=== PATIENT | female | born 1990 | race Caucasian/White ===

== ENCOUNTER 2016-08-24 16:55 | Inpatient (IN) | payer MEDICAID ==
[2016-08-24] MEDS ORDERED: BRETHINE SUB-Q PRN (18:55)
[2016-08-24] MEDS ORDERED: BRETHINE IVP PRN (18:55)
[2016-08-24] MEDS ORDERED: SUBLIMAZE IV PRN (18:55)
[2016-08-24] MEDS ORDERED: ePHEDrine SULFATE IV PRN (18:55)
[2016-08-24] MEDS ORDERED: MINERAL OIL PO PRN (18:55)
[2016-08-24] MEDS ORDERED: PITOCin/NS 20 UNIT/1000ML DRIP 20 UNITS/1,000 ML BAG IV SCH (19:00)
--- NOTE | 2016-08-24 19:01 | History and Physical Report ---
History of Present Illness Date of examination: 08/24/16 Chief complaint: decreased movement since yesterday History of present illness: 25 Y/O now 39.1 weeks with c/o decreased movement since yesterday. Late care at [facility] since 25 weeks. GBS positive. U/S today with JANENE @ 5.7. Past History Past Medical History: no pertinent history Past Surgical History: no surgical history Family/Genetic History: none Social history: no significant social history - Obstetrical History Expected Date of Delivery: 08/30/16 Actual Gestation: 39 Week(s) 1 Day(s) : 4 Para: 3 Hx # Term Pregnancies: 0 Number of Pregnancies: 0 Spontaneous Abortions: 0 Induced : 0 Number of Living Children: 3 (one baby with TOF) Medications and Allergies Allergies Allergy/AdvReac Type Severity Reaction Status Date / Time No Known Allergies Allergy Verified 08/24/16 17:04 Home Medications Medication Instructions Recorded Confirmed Last Taken Type Ferrous Gluconate [Iron 236 MG tab] 1 tab PO BID 08/24/16 08/24/16 08/23/16 History 2000 Vitamin Tablet 1 tab PO DAILY 08/24/16 08/24/16 08/23/16 20:00 History Review of Systems All systems: negative - Physical Exam Breasts: Positive: deferred Cardiovascular: Regular rate Lungs: Positive: Clear to auscultation Abdomen: Positive: normal appearance Genitourinary (Female): Positive: normal external genitalia Vulva: both: normal Vagina: Positive: normal moisture Uterus: Positive: enlarged Adnexa: both: normal Anus/Rectum: Positive: normal perianal skin Extremities: Positive: normal Deep Tendon Reflex Grade: Normal +2 - Obstetrical FHR: category 1 Cervical Dilatation: 1 Cervical Effacement Percentage: 70 station: -1 Uterine Contraction Pattern: Irregular Uterine Contraction Intensity: Mild Results All other labs normal. Assessment and Plan A: IUP @ 39.1 weeks Oligiohydramnious P: Cervadil ripening
[2016-08-24] MEDS ORDERED: LACTATED RINGERS 1,000 ML IV SCH (19:02)
[2016-08-24] MEDS ORDERED: CERVIDIL VG ONE (19:30)
[2016-08-24 19:47] LABS: Hematocrit 32.8 % (30.3-42.9); Hemoglobin 11.6 gm/dl (10.1-14.3); Mean Corpuscular HGB Conc 35 % (30-34); Mean Corpuscular Hemoglobin 33 pg (28-32); Mean Corpuscular Volume 94 fl (79-97); Platelet Count 177 K/mm3 (140-440); Red Blood Count 3.47 M/mm3 (3.65-5.03); Red Cell Distribution Width 13.4 % (13.2-15.2)
[2016-08-24] MEDS ORDERED: POLYCILLIN/NS 2 GM/100 ML 2 GM/100 ML BAG IV ONE (20:00)
[2016-08-24] MEDS ORDERED: XYLOCAINE 2% INFILTRATI ONE (20:00)
[2016-08-24] MEDS ORDERED: POLYCILLIN/NS 1 GM/50 ML 1 GM/50 ML BAG IV SCH (22:56)
[2016-08-25] MEDS ORDERED: POLYCILLIN/NS 2 GM/100 ML 2 GM/100 ML BAG IV ONE (05:38)
[2016-08-25] MEDS ORDERED: METHERGINE IM ONE (07:10)
--- NOTE | 2016-08-25 07:23 | Procedure Note ---
OB Delivery Note - Delivery Date of Delivery: 08/25/16 Surgeon: RENÉE ROMERO Estimated blood loss: 300cc - Vaginal Delivery presentation: vertex Delivery position: OA Delivery induction: cervidil Delivery monitor: external FHT, external uterine Route of delivery: Delivery placenta: spontaneous Delivery cord: 3 umbilical vessels Episiotomy: none Delivery laceration: 1st degree - Infant A at 1 minute: 8 at 5 minutes: 9 Gender: Female (Del @ 7:09, weight is 6 lbs. 11 oz. or 3020 g)
[2016-08-25] MEDS ORDERED: BENADRYL PO PRN (07:24)
[2016-08-25] MEDS ORDERED: ZOFRAN IV PRN (07:24)
[2016-08-25] MEDS ORDERED: DERMOPLAST TP PRN (07:24)
[2016-08-25] MEDS ORDERED: LANSINOH TP PRN (07:24)
[2016-08-25] MEDS ORDERED: PHENERGAN PO PRN (07:24)
[2016-08-25] MEDS ORDERED: PHENERGAN PR PRN (07:24)
[2016-08-25] MEDS ORDERED: MILK OF MAGNESIA PO PRN (07:24)
[2016-08-25] MEDS ORDERED: METHERGINE IM PRN (07:24)
[2016-08-25] MEDS ORDERED: TUCKS PAD TP PRN (07:24)
[2016-08-25] MEDS ORDERED: TYLENOL PO PRN (07:24)
[2016-08-25] MEDS ORDERED: DULCOLAX PR PRN (07:24)
[2016-08-25] MEDS ORDERED: PITOCin/NS 20 UNIT/1000ML DRIP 20 UNITS/1,000 ML BAG IV SCH (08:00)
[2016-08-25] MEDS ORDERED: SODIUM CHLORIDE FLUSH SYRINGE 10 ML IV NR (08:00)
[2016-08-25] MEDS: NORCO 5/325 PO PRN ×2 (09:33→17:37)
[2016-08-25] MEDS: FEOSOL PO SCH ×2 (11:11→21:00)
[2016-08-25] MEDS: PRENATAL VITAMIN PO SCH (11:11)
[2016-08-25] MEDS: MOTRIN PO SCH ×3 (11:12→21:00)
[2016-08-25] MEDS: COLACE PO SCH ×2 (15:40→21:00)
[2016-08-25 20:41] LABS: Hematocrit 29.6 % (30.3-42.9); Hemoglobin 10.4 gm/dl (10.1-14.3)
[2016-08-25] MEDS: SENOKOT S PO SCH (21:00)
[2016-08-26] MEDS: MOTRIN PO SCH ×3 (05:11→18:10)
[2016-08-26] MEDS: NORCO 5/325 PO PRN ×2 (05:12→22:14)
--- NOTE | 2016-08-26 10:06 | Ultrasound Report ---
ULTRASOUND OB LIMITED History: well being Technique: Transabdominal ultrasound with Doppler interrogation. Gestation: Single Position: Cephalic Amniotic Fluid: Decreased JANENE = 5.7 cm Placenta: Posterior Placental Grade: 2 Heart Rate: 146 BPM
[2016-08-26] MEDS: COLACE PO SCH ×2 (10:07→22:11)
[2016-08-26] MEDS: PRENATAL VITAMIN PO SCH (10:07)
[2016-08-26] MEDS: FEOSOL PO SCH ×2 (10:07→22:11)
--- NOTE | 2016-08-26 10:07 | Ultrasound Report ---
ULTRASOUND BIOPHYSICAL PROFILE: History: well being Technique: Transabdominal ultrasound with Doppler interrogation. 2 - breathing movements 2 - movements 2 - posture and tone 2 - Qualitative amniotic fluid volume 8 - TOTAL SCORE OF POSSIBLE 8 Heart Rate (bpm) 146
--- NOTE | 2016-08-26 12:36 | Progress Note ---
Assessment and Plan A: PPD #1 -stable P: Discharge home in am Discharge instructions given Subjective - Subjective Date of service: 08/26/16 Principal diagnosis: Interval history: 25 Y/O now 39.1 weeks with c/o decreased movement since yesterday. Late care at [facility] since 25 weeks. GBS positive. U/S today with JANENE @ 5.7. Patient reports: appetite normal [place]: doing well Objective - Vital Signs Latest vital signs: Vital Signs Temp Pulse Resp BP 08/26/16 00:00 98.3 F 72 18 115/73 08/25/16 16:45 97.7 F 62 18 110/55 Intake and Output 08/25/16 08/26/16 08/26/16 22:59 06:59 14:59 Other: # Voids Indwelling Catheter 1 - Exam Breasts: Present: deferred Cardiovascular: Present: Regular rate Abdomen: Present: soft Vulva: both: normal Uterus: Present: fundal height below umbilicus Extremities: Present: normal Deep Tendon Reflex Grade: Normal +2 - Labs Labs: Abnormal lab results 08/25/16 Range/Units 20:09 Hct 29.6 L (30.3-42.9) %
--- NOTE | 2016-08-26 12:38 | Discharge Summary ---
Providers - Providers Date of Admission: 08/24/16 21:28 Date of discharge: 08/27/16 Attending physician: INGRIS SPRING MD Primary care physician: INGRIS SPRING MD Hospitalization Reason for admission: induction of labor Delivery: Episiotomy: none Laceration: none Other procedures: none complications: none Discharge diagnosis: IUP at term delivered baby: female Condition at discharge: Good Disposition: DISCHARGED TO HOME OR SELFCARE Plan - Discharge Medications Prescriptions: HYDROcodone/APAP 5-325 [[place] 5/325] 1 each PO Q6HR PRN #30 tablet PRN Reason: Pain Ibuprofen [Motrin 600 MG tab] 600 mg PO Q8H PRN #30 tablet PRN Reason: Pain Multivitamin with Iron [Multivitamins with Iron] 1 each PO DAILY #30 tablet - Provider Discharge Summary Additional instructions: [] Smoking cessation referral if applicable(refer to patient education folder for contact #) [] Refer to [facility]'s [facility] Booklet Call your doctor immediately for: * Fever > 100.5 * Heavy vaginal bleeding ( >1 pad per hour) * Severe persistent headache * Shortness of breath * Reddened, hot, painful area to leg or breast * Drainage or odor from incision. * Keep incision clean and dry at all times and follow doctor's instructions regarding bathing/showering - Follow up plan Follow up: [facility] [Provider Group] - 6 Weeks
[2016-08-26] MEDS: SENOKOT S PO SCH (22:00)
[2016-08-27] MEDS: MOTRIN PO SCH ×2 (00:47→06:03)
[2016-08-27 08:30] VITALS: BP 95/58
== END 2016-08-27 15:25 | disposition home or self-care (01) | DRG 775 ==
LOC: TRG 16:55 → LD 21:28 → OB 08-25 10:19
PROVIDERS: ADMIT Obstetrics & Gynecology; ATTEND Obstetrics & Gynecology
PROC: 10E0XZZ Delivery of Products of Conception, External Approach (ICD-10-PCS; principal; 2016-08-25)
PROC: 0HQ9XZZ Repair Perineum Skin, External Approach (ICD-10-PCS; 2016-08-25)
DX: O41.03X0 Oligohydramnios, third trimester, not applicable or unspecified (principal); O99.824 Streptococcus B carrier state complicating childbirth; O70.0 First degree perineal laceration during delivery; Z3A.39 39 weeks gestation of pregnancy; Z37.0 Single live birth
CPT/HCPCS: 36415; 59200; 76815; 76819; 85014; 85018; 85027; 86850; 86900; 86901; 99211; G0463; J0290; J2210; J2590; J3010; J7120

== ENCOUNTER 2017-10-31 17:52 | Outpatient (CLI) | payer MEDICAID ==
[2017-10-31 18:40] VITALS: BP 106/61
== END 2017-10-31 18:36 | disposition home or self-care (01) ==
LOC: TRG 17:52
PROVIDERS: ATTEND Obstetrics & Gynecology
DX: O47.03 False labor before 37 completed weeks of gestation, third trimester (principal); Z3A.37 37 weeks gestation of pregnancy
CPT/HCPCS: 59025

== ENCOUNTER 2017-11-04 11:21 | Inpatient (IN) | payer MEDICAID ==
[2017-11-04] MEDS ORDERED: STADOL IV PRN (11:47)
[2017-11-04] MEDS ORDERED: BRETHINE SUB-Q PRN (11:47)
[2017-11-04] MEDS ORDERED: ZOFRAN IV PRN ×2 (11:47→15:28)
[2017-11-04] MEDS ORDERED: SUBLIMAZE IV PRN (11:47)
[2017-11-04] MEDS ORDERED: MINERAL OIL PO PRN (11:47)
[2017-11-04] MEDS ORDERED: ePHEDrine SULFATE IV PRN (11:47)
[2017-11-04] MEDS ORDERED: NARCAN 0.4 MG/1 ML IV PRN (11:47)
[2017-11-04] MEDS ORDERED: POLYCILLIN/NS 2 GM/100 ML 2 GM/100 ML BAG IV ONE (11:47)
[2017-11-04] MEDS ORDERED: XYLOCAINE 2% INFILTRATI ONE (11:47)
[2017-11-04] MEDS ORDERED: BRETHINE IVP PRN (11:47)
[2017-11-04] MEDS ORDERED: LACTATED RINGERS 1,000 ML IV SCH (12:00)
[2017-11-04] MEDS ORDERED: PITOCin/NS 30 UNIT/500ML 30 UNITS/500 ML BAG IV SCH (12:00)
[2017-11-04] MEDS ORDERED: PITOCin/NS 20 UNIT/1000ML DRIP 20 UNITS/1,000 ML BAG IV SCH ×2 (12:00→15:28)
--- NOTE | 2017-11-04 12:46 | History and Physical Report ---
History of Present Illness Date of examination: 11/04/17 Date of admission: 11/04/17 11:48 Chief complaint: contractions History of present illness: Pt is a 26 year old female MARITO 11/15/17 at 38w3d who presents with regular contractions since 10 am and advanced cervical dilation of 6 cm. She denies leakage of fluid or vaginal bleeding. She has had care at [facility] since transfer into care at 29 wks complicated by anemia on iron supplementation, E Coli UTI, and GBS positive status. Past History Past Medical History: no pertinent history Social history: no significant social history - Obstetrical History Expected Date of Delivery: 11/15/17 Actual Gestation: 38 Week(s) 3 Day(s) : 5 Para: 4 Hx # Term Pregnancies: 4 Number of Pregnancies: 0 Spontaneous Abortions: 0 Induced : 0 Number of Living Children: 4 Medications and Allergies Allergies Allergy/AdvReac Type Severity Reaction Status Date / Time No Known Allergies Allergy Verified 08/24/16 17:04 Home Medications Medication Instructions Recorded Confirmed Last Taken Type Ferrous Gluconate [Iron 236 MG tab] 1 tab PO BID 08/24/16 10/31/17 08/23/16 History 2000 Vitamin Tablet 1 tab PO DAILY 08/24/16 10/31/17 08/23/16 20:00 History Active Meds: Active Medications Butorphanol Tartrate (Stadol) 2 mg IV Q2H PRN PRN Reason: Pain , Severe (7-10) Ephedrine Sulfate (Ephedrine Sulfate) 10 mg IV Q2M PRN PRN Reason: Hypotension Fentanyl (Sublimaze) 100 mcg IV Q2H PRN PRN Reason: Labor Pain Ampicillin Sodium (Polycillin/Ns 2 Gm/100 Ml) 2 gm in 100 mls @ 100 mls/hr IV ONCE ONE; Protocol Stop: 11/04/17 12:46 Ampicillin Sodium (Ampicillin/Ns 1 Gm/50 Ml) 1 gm in 50 mls @ 100 mls/hr IV Q4HR ANI; Protocol Lactated Ringer's (Lactated Ringers) 1,000 mls @ 125 mls/hr IV DIRECT ANI Oxytocin/Sodium Chloride (Pitocin/Ns 20 Unit/1000ml Drip) 20 units in 1,000 mls @ 125 mls/hr IV DIRECT ANI Oxytocin/Sodium Chloride (Pitocin/Ns 30 Unit/500ml) 30 units in 500 mls @ 2 mls /hr IV TITR ANI; Protocol Mineral Oil (Mineral Oil) 30 ml PO QHS PRN PRN Reason: Constipation Naloxone HCl (Narcan 0.4 Mg/1 Ml) 0.1 mg IV Q2MIN PRN PRN Reason: Res Rate </= 8 or 02 SAT < 92% Ondansetron HCl (Zofran) 4 mg IV Q8H PRN PRN Reason: Nausea And Vomiting Terbutaline Sulfate (Brethine) 0.25 mg SUB-Q ONCE PRN PRN Reason: Hyperstimulation/Hypertonicity Terbutaline Sulfate (Brethine) 0.25 mg IVP ONCE PRN PRN Reason: Hyperstimulation/Hypertonicity Review of Systems All systems: negative - Vital Signs Vital signs: Vital Signs Pulse BP 65 124/73 11/04/17 11:44 11/04/17 11:44 Temp Pulse Resp BP Pulse Ox 65 124/73 11/04/17 11:44 11/04/17 11:44 - Physical Exam Breasts: Positive: deferred Cardiovascular: Regular rate Lungs: Positive: Clear to auscultation Abdomen: Positive: soft (gravid ) Uterus: Positive: enlarged (gravid ) Extremities: Positive: normal - Obstetrical FHR: auscultation normal Uterine Contraction Monitor Mode: External Cervical Dilatation: 7 Cervical Effacement Percentage: 90 station: +1 Uterine Contraction Pattern: Regular Uterine Tone Measurement Phase: Resting Uterine Contraction Intensity: Strong/Firm Results All other labs normal. Assessment and Plan A: IUP at 38w3d Active labor GBS positive status P: Admit to labor and delivery GBS prophylaxis Routine intrapartum care.
--- NOTE | 2017-11-04 12:51 | Procedure Note ---
OB Delivery Note - Delivery Date of Delivery: 11/04/17 Surgeon: GERALDINE TAM Estimated blood loss: 300cc - Vaginal Delivery presentation: vertex Delivery position: OA Intrapartum events: precipitous labor- <3hr Delivery monitor: external FHT, external uterine Route of delivery: Delivery placenta: spontaneous Delivery cord: 3 umbilical vessels, other (body cord ) Episiotomy: none Delivery laceration: none Anesthesia: none Delivery comments: Pt experienced rupture of membranes and progressed rapidly to complete dilation and pushed to deliver a viable male over intact perineum via under no anesthesia. Head delivered in LIVE position, followed quickly by shoulders and body. Body cord delivered through. placed on maternal abdomen and bulb suctioned. Cord clamped and cut and handed to nurse in attendance. Cord blood collected. Placenta delivered spontaneously (intact, 3VC). Vagina and perineum explored. No lacerations noted. EBL 300 ml. - Infant A at 1 minute: 9 at 5 minutes: 9 Infant Gender: Male (2994g (6lb 10oz) @ 1206 pm)
[2017-11-04 14:50] LABS: Hematocrit 31.2 % (30.3-42.9); Hemoglobin 10.7 gm/dl (10.1-14.3); Mean Corpuscular HGB Conc 34 % (30-34); Mean Corpuscular Hemoglobin 32 pg (28-32); Mean Corpuscular Volume 93 fl (79-97); Platelet Count 193 K/mm3 (140-440); Red Blood Count 3.36 M/mm3 (3.65-5.03); Red Cell Distribution Width 16.2 % (13.2-15.2)
[2017-11-04] MEDS ORDERED: SODIUM CHLORIDE FLUSH SYRINGE 10 ML IV SCH (15:28)
[2017-11-04] MEDS ORDERED: TUCKS PAD TP PRN (15:28)
[2017-11-04] MEDS ORDERED: PERCOCET 5/325 PO PRN (15:28)
[2017-11-04] MEDS ORDERED: LANSINOH TP PRN ×2 (15:28)
[2017-11-04] MEDS ORDERED: BENADRYL PO PRN (15:28)
[2017-11-04] MEDS ORDERED: PHENERGAN PR PRN (15:28)
[2017-11-04] MEDS ORDERED: PHENERGAN PO PRN (15:28)
[2017-11-04] MEDS ORDERED: DULCOLAX PR PRN (15:28)
[2017-11-04] MEDS ORDERED: TYLENOL PO PRN (15:28)
[2017-11-04] MEDS ORDERED: MILK OF MAGNESIA PO PRN (15:28)
[2017-11-04] MEDS ORDERED: DERMOPLAST TP PRN (15:28)
[2017-11-04] MEDS: MOTRIN PO SCH ×2 (15:48→22:13)
[2017-11-04] MEDS ORDERED: AMPICILLIN/NS 1 GM/50 ML 1 GM/50 ML BAG IV SCH (15:49)
[2017-11-04] MEDS: NORCO 5/325 PO PRN (15:49)
[2017-11-04] MEDS: COLACE PO SCH (22:13)
[2017-11-04] MEDS: FEOSOL PO SCH (22:14)
[2017-11-05 01:10] LABS: Hematocrit 25.3 % (30.3-42.9); Hemoglobin 9.2 gm/dl (10.1-14.3)
[2017-11-05] MEDS ORDERED: BOOSTRIX IM ONE (06:00)
[2017-11-05] MEDS: NORCO 5/325 PO PRN (08:45)
[2017-11-05] MEDS: FEOSOL PO SCH ×2 (08:45→23:34)
[2017-11-05] MEDS: COLACE PO SCH ×2 (08:45→23:35)
--- NOTE | 2017-11-05 12:34 | Progress Note ---
Assessment and Plan - Patient Problems (1) Spontaneous vaginal delivery Current Visit: Yes Status: Acute Plan to address problem: Continue routine care Subjective - Subjective Date of service: 11/05/17 Interval history: The patient the patient underwent a spontaneous vaginal delivery yesterday. She has a known GBS status however was unable to receive adequate antibiotic therapy. The patient and will continue to be monitored for the next 48 hours. Patient reports: appetite normal, voiding normally, pain well controlled [place]: doing well Objective - Vital Signs Latest vital signs: Vital Signs Temp Pulse Resp BP BP Pulse Ox 11/05/17 07:45 98.2 F 59 L 16 98/58 97 11/05/17 04:00 98.4 F 78 18 104/64 11/05/17 00:00 98.6 F 79 18 104/53 11/04/17 19:30 98.6 F 77 16 99/79 11/04/17 16:01 98.4 F 57 L 16 103/54 94 11/04/17 15:15 98.5 F 59 L 18 99/59 99 11/04/17 14:02 56 L 108/70 11/04/17 13:47 51 L 110/71 11/04/17 13:32 53 L 110/66 11/04/17 13:18 59 L 124/58 11/04/17 12:48 64 107/59 Intake and Output 11/04/17 11/05/17 11/05/17 22:59 06:59 14:59 Intake Total 745 300 840 Output Total 1300 Balance -555 300 840 Intake: IV 125 Right Hand 125 Oral 320 120 Intake, Free Water 300 300 720 Output: Urine 1300 Void 1300 Other: Total, Intake Amount 200 120 Total, Output Amount 800 Voiding Method Toilet # Voids 1 Void 1 - Exam Uterus: Present: normal, firm - Labs Labs: Abnormal lab results 11/04/17 11/05/17 Range/Units 11:50 00:55 RBC 3.36 L (3.65-5.03) M/mm3 Hgb 9.2 L (10.1-14.3) gm/dl Hct 25.3 L (30.3-42.9) % RDW 16.2 H (13.2-15.2) %
--- NOTE | 2017-11-05 12:36 | Discharge Summary ---
Providers - Providers Date of Admission: 11/04/17 11:48 Date of discharge: 11/06/17 Attending physician: GERALDINE TAM 11/04/17 15:28 Consult to [facility] [CONS] Routine Reason For Exam: assistance with , SNS Primary care physician: GERALDINE TAM Hospitalization Reason for admission: active labor Delivery: Discharge diagnosis: IUP at term delivered baby: male Hospital course: The patient was admitted in active labor and had a normal spontaneous vaginal delivery. She did not receive adequate antibiotic coverage for GBS status. The patient and will monitor for 48 hours without complication. Condition at discharge: Good Disposition: DC-01 TO HOME OR SELFCARE - Discharge Diagnoses (1) Spontaneous vaginal delivery Status: Acute Plan - Discharge Medications Prescriptions: HYDROcodone/APAP 5-325 [[place] 5/325] 1 each PO Q6HR PRN #30 tablet PRN Reason: Pain Ibuprofen [Motrin] 800 mg PO Q8HR PRN #60 tablet PRN Reason: Pain, Mild (1-3) - Provider Discharge Summary Activity: no sex for 6 weeks, no heavy lifting 4 weeks, no strenuous exercise Diet: routine Instructions: routine Additional instructions: [] Smoking cessation referral if applicable(refer to patient education folder for contact #) [] Refer to [facility]'s [facility] Booklet Call your doctor immediately for: * Fever > 100.5 * Heavy vaginal bleeding ( >1 pad per hour) * Severe persistent headache * Shortness of breath * Reddened, hot, painful area to leg or breast * Follow up in 4 weeks for visit - Follow up plan
[2017-11-05] MEDS ORDERED: M-M-R II VACCINE SUB-Q ONE (12:52)
[2017-11-05] MEDS: MOTRIN PO SCH ×2 (18:18→23:35)
[2017-11-06] MEDS: MOTRIN PO SCH ×2 (05:47→16:40)
[2017-11-06] MEDS: NORCO 5/325 PO PRN (16:41)
[2017-11-06 18:30] VITALS: BP 121/67
== END 2017-11-06 17:15 | disposition home or self-care (01) | DRG 775 ==
LOC: TRG 11:21 → LD 11:48 → OB 15:17
PROVIDERS: ADMIT Obstetrics & Gynecology; ATTEND Obstetrics & Gynecology
PROC: 10E0XZZ Delivery of Products of Conception, External Approach (ICD-10-PCS; principal; 2017-11-04)
DX: O62.3 Precipitate labor (principal); O99.02 Anemia complicating childbirth; B96.20 Unspecified Escherichia coli [E. coli] as the cause of diseases classified elsewhere; O99.824 Streptococcus B carrier state complicating childbirth; Z3A.38 38 weeks gestation of pregnancy; Z37.0 Single live birth; O23.43 Unspecified infection of urinary tract in pregnancy, third trimester
CPT/HCPCS: 36415; 85014; 85018; 85027; 86592; 86850; 86900; 86901; 99211; G0463; J0290; J2590; J3010; J7120